=== PATIENT | male | born 1990 | race Caucasian/White ===

== ENCOUNTER → 2025-07-11 08:35 | Outpatient (REF) | payer OTHER, SELFPAY | LOC: RCS 08:35 | PROVIDERS: ATTENDING PHYSICIAN Internal Medicine; FAMILY PHYSICIAN Family Medicine | DX: R00.2 Palpitations (principal); I49.1 Atrial premature depolarization; I47.10 Supraventricular tachycardia, unspecified | CPT/HCPCS: 93306; Q9950 ==

== ENCOUNTER → 2025-07-14 09:10 | Outpatient (REF) | payer OTHER, SELFPAY | LOC: RCS 09:10 | PROVIDERS: ATTENDING PHYSICIAN Internal Medicine; FAMILY PHYSICIAN Family Medicine | DX: R00.2 Palpitations (principal); I49.1 Atrial premature depolarization; I47.10 Supraventricular tachycardia, unspecified | CPT/HCPCS: 93017 ==